=== PATIENT | male | born 1975 | race African-American/Black ===

== ENCOUNTER 2020-07-23 11:10 | Emergency (ER) | payer OTHER, MEDICAID, SELFPAY ==
[2020-07-23 11:29] VITALS: BP 103/87; PULSE 79; RESP 16; TEMP 36; O2SAT 99
--- NOTE | 2020-07-23 11:48 | ED.UPPEXIN ---
HPI - Extremity Injury (Upper) General Chief Complaint: Extremity Injury, Upper Stated Complaint: right arm pain Time Seen by Provider: 07/23/20 11:50 Source: patient Mode of arrival: ambulatory Limitations: no limitations History of Present Illness HPI narrative: Saleem Aiken is a 45 yo male with no PMH who comes to [facility] with carpal tunnel syndrome in the right hand. He is wearing an Jacoby wrap has got mild finger swelling and continues to complain of numbness in his fingers. He went to work this morning at the [employer] that he works at night and they will not let him work with his hand wrapped. He has appoint with PCP on Tuesday to either get a referral for physical therapy or cortisone injection. Is requesting that I give him a work note until he can get to his doctor X-ray done in urgent care last week and there was no fracture, diagnosis of carpal tunnel and sent to see physician Related Data Home Medications Medication Instructions Recorded Confirmed chlorzoxazone 500 mg PO TID 07/23/20 07/23/20 diclofenac sodium 75 mg PO Q12H PRN 07/23/20 07/23/20 ergocalciferol (vitamin D2) 1,250 mcg PO WEEKLY 07/23/20 07/23/20 naproxen 500 mg PO Q12H 07/23/20 07/23/20 Allergies Allergy/AdvReac Type Severity Reaction Status Date / Time No Known Allergies Allergy Verified 07/23/20 11:32 Review of Systems Review of Systems: Narrative: CONSTITUTIONAL: Denies fever, chills, sweats. EYES: Denies visual changes, redness, discharge. ENT: Denies rhinorrhea, congestion, sore throat, otalgia. CARDIOVASCULAR: Denies chest pain, palpitations, edema. RESPIRATORY: Denies dyspnea, wheezing, cough GASTROINTESTINAL: Denies abdominal pain, nausea, vomiting, diarrhea. GENITOURINARY: Denies dysuria, hematuria, abnormal discharge SKIN: Denies rash or itching. NEUROLOGIC: Denies numbness, or focal weakness. PSYCHIATRIC: Denies anxiety or depression. Right wrist pain and swelling PMFSH Past Medical History Medical History No acute medical problems Family History Family History Other Cerebrovascular accident Hypertension Social History Social History (Updated 07/23/20 @ 12:03 by Noy Ibrahim CNP) Smoking status: Never smoker Alcohol intake: former Comments At time of signature, I agree with nursing past medical, surgical, social and family history. There is no relevant family history pertinent to the presenting complaint. Exam Narrative: Exam Narrative: GENERAL: This is a well-nourished, well-developed patient, in mild distress. HEAD: normocephalic, atraumatic. EYES: Sclera clear/white. Vision is grossly intact. EARS: External ears normal, Hearing grossly intact. NOSE: External nose normal without nasal discharge, nares without redness, no rhinorrhea. THROAT: Mucous membranes moist, NECK: Neck supple, non-tender CARDIOVASCULAR: Regular rate and rhythm without murmurs, gallops, or rubs. RESPIRATORY: Clear to auscultation. Breath sounds equal bilaterally. No wheezes, rales, or rhonchi. GASTROINTESTINAL: Abdomen soft, non-tender, SKIN: warm, intact with no suspicious lesions or rash, good texture and turgor. NEURO: awake, alert, and oriented to person, place and time. There were no obvious focal neurologic abnormalities. Steady gait EXTREMITIES: Normal range of motion on L. On R wrist, pain with finger opposition, able to flex/extend. supinate/pronate with pain. BACK: Nontender without deformity Course Course Emergency Course: Patient comes to [facility] to request a work note as required by his employer until he can go to his primary care physician on Tuesday he has pain in his wrists and uses an Jacoby wrap and they will not allow him to work with an Jacoby wrap on his hand Given work note for 2 days after discussion with patient Vital Signs Vital signs: Vital Signs Temperature 96.8 F L 07/23/20
== END 2020-07-23 12:11 | disposition home or self-care (01) ==
PROVIDERS: Emergency Provider Nurse Practitioner
DX: S63.501A Unspecified sprain of right wrist, initial encounter (principal); S66.911A Strain of unspecified muscle, fascia and tendon at wrist and hand level, right hand, initial encounter; X58.XXXA Exposure to other specified factors, initial encounter
CPT/HCPCS: 99203; G0463

== ENCOUNTER 2021-03-29 07:57 | Emergency (ER) | payer OTHER, MEDICAID, SELFPAY ==
[2021-03-29 08:03] VITALS: BP 164/84; PULSE 76; RESP 18; TEMP 37; O2SAT 100
--- NOTE | 2021-03-29 08:11 | ED.DENTAL ---
HPI - Dental/Oral General Chief complaint: Dental/Oral Stated complaint: toothache Time Seen by Provider: 03/29/21 07:59 Source: patient and RN notes reviewed Mode of arrival: ambulatory Limitations: no limitations History of Present Illness HPI Narrative: This is a 46 year old male who presents for evaluation of right upper tooth pain. He reports having intermittent pain for 3 weeks and his pain became worse last night. He states he was unable to sleep due to constant throbbing pain. He has pain to right upper molar and he reports it is causing pain right face. He has not noticed any swelling, drainage, nausea, vomiting or fever. He denies taking anything for pain, and he has not even tried over the counter. He reports he was seen by dentist 1 week ago. He states his dentist told him he needed to see his PCP to get antibiotics but he has been unable to make an appointment with his PCP due to covid. Related Data Home Medications Medication Instructions Recorded Confirmed chlorzoxazone 500 mg PO TID 07/23/20 07/23/20 diclofenac sodium 75 mg PO Q12H PRN 07/23/20 07/23/20 ergocalciferol (vitamin D2) 1,250 mcg PO WEEKLY 07/23/20 07/23/20 naproxen 500 mg PO Q12H 07/23/20 07/23/20 Allergies Allergy/AdvReac Type Severity Reaction Status Date / Time No Known Allergies Allergy Verified 03/29/21 08:05 Review of Systems Review of Systems: All systems reviewed & are unremarkable except as noted in HPI and below PMFSH Past Medical History Medical History (Updated 03/29/21 @ 08:16 by Jennie Gaitan MD) No acute medical problems Surgical History Surgical History (Updated 03/29/21 @ 08:11 by Jennie Gaitan MD) No significant past surgical history Family History Family History Other Cerebrovascular accident Hypertension Social History Social History Smoking status: Never smoker Alcohol intake: former Exam Const: General: no acute distress and alert Orientation/consciousness: patient oriented x3 HENMT: Ears: external ears normal and TM's normal bilaterally General nose exam: Normal external nose present Face and sinus: sinuses nontender and face symmetric Mouth: Yes lip normal, Yes tongue normal, Yes moist mucous membranes and No trismus Teeth and gingiva: abnormal tooth and associated gingiva and caries Throat: posterior oropharynx normal and tonsils normal Eyes: Pupils: Equal, round and reactive pupils present EOM: EOMs intact bilaterally Resp: Effort & Inspection: normal respiratory effort Neuro: General: patient oriented x3 and moves all extremities Gait exam (Neuro): Normal gait present Psych: Mental Status: mental status grossly normal Affect: normal affect Course Reevaluation(s) Reevaluation #1: Patient understands discharge plan to send out on antibiotics. Date: 03/29/21 Time: 08:15 Vital Signs Vital signs: Vital Signs Temperature 98.6 F 03/29/21 08:03 Pulse Rate 76 03/29/21 08:03 Respiratory Rate 18 03/29/21 08:03 Blood Pressure 164/84 H 03/29/21 08:03 Pulse Oximetry 100 03/29/21 08:03 Temperature 98.6 F 03/29/21 08:03 Pulse Rate 76 03/29/21 08:03 Respiratory Rate 18 03/29/21 08:03 Blood Pressure 164/84 H 03/29/21 08:03 Pulse Oximetry 100 03/29/21 08:03 Discharge Plan Discharge Clinical Impression: Dental caries, Toothache Patient Disposition: Home, Self-Care Condition: Stable Instructions: Antibiotic Form, Dental Abscess (ED), Toothache (ED) Additional Instructions: Take antibiotics as prescribed. Follow up with your primary care physician as needed. Please call your dentist to get you teeth taken care of. Prescriptions: New naproxen 500 mg tablet 500 mg PO BID PRN (Reason: pain) Qty: 20 RF: 0 amoxicillin 875 mg tablet 875 mg PO Q12H Qty: 20 RF: 0 No Action chlorzoxaz
--- NOTE | 2021-03-29 08:23 | PC.NURSE ---
PT is refusing toradol injection and states he will go elsewhere for pain relief.
== END 2021-03-29 08:29 | disposition home or self-care (01) ==
PROVIDERS: Emergency Provider General Practice
DX: K02.9 Dental caries, unspecified (principal)
CPT/HCPCS: 99283

== ENCOUNTER 2022-01-15 02:15 | Emergency (ER) | payer OTHER, SELFPAY ==
[2022-01-15 02:18] VITALS: BP 140/70; PULSE 68; RESP 18; O2SAT 100
--- NOTE | 2022-01-15 05:28 | ED.GENADULT ---
HPI - General Adult General Chief complaint: Dental/Oral Stated complaint: toothache Time Seen by Provider: 01/15/22 04:42 History of Present Illness HPI narrative: this is a 46-year-old male presenting to ED with tooth pain. Patient broke his upper right molar approximately 4 days ago. Since then he has been having pain and cold sensitivity. patient went to see a dentist but was turned away. He is going to see a walk-in dentist later today. He is here for pain control today. He denies fever, chills, nausea vomiting diarrhea. He has no facial swelling or sensation of throat swelling. Related Data Home Medications Medication Instructions Recorded Confirmed chlorzoxazone 500 mg tablet 500 mg PO TID 07/23/20 07/23/20 diclofenac sodium 75 mg 75 mg PO Q12H PRN Pain 07/23/20 07/23/20 tablet,delayed release ergocalciferol (vitamin D2) 1,250 1,250 mcg PO WEEKLY 07/23/20 07/23/20 mcg (50,000 unit) capsule naproxen 500 mg tablet 500 mg PO Q12H 07/23/20 07/23/20 Allergies Allergy/AdvReac Type Severity Reaction Status Date / Time No Known Allergies Allergy Verified 03/29/21 08:05 Review of Systems Review of Systems: CONSTITUTIONAL: Denies night sweats. EYES: No eye pain ENT: Denies rhinorrhea CARDIOVASCULAR: Denies palpitations RESPIRATORY: Denies hemoptysis GASTROINTESTINAL: Denies hematemesis GENITOURINARY: Denies hematuria. SKIN: Denies rash MUSCULOSKELETAL: Denies myalgia. NEUROLOGIC: Denies weakness. PSYCHIATRIC: Denies delusions PMFSH Past Medical History Medical History Healthy adult No acute medical problems Surgical History Surgical History No significant past surgical history Family History Family History Other Cerebrovascular accident Hypertension Social History Social History Smoking status: Never smoker Alcohol intake: former Exam Narrative: APPEARANCE: No apparent distress. Head: Patient has multiple gold plated teeth, he has a broken molar that extends below the gum line in the upper right. EYES: EOMI, NOSE: Atraumatic NECK: Trachea midline RESPIRATORY: No increased rate of breathing CARDIOVASCULAR: RRR, ABDOMINAL: Non-distended MUSCULOSKELETAl: No obvious deformities NEURO: Alert. Moving 4/4 extremities SKIN:: Warm, dry. Normal color PSYCHIATRIC: Normal affect Course Vital Signs Vital signs: Vital Signs Pulse Rate 68 01/15/22 02:18 Respiratory Rate 18 01/15/22 02:18 Blood Pressure 140/70 01/15/22 02:18 Pulse Oximetry 100 01/15/22 02:18 Oxygen Delivery Room Air 01/15/22 02:18 Pulse Rate 68 01/15/22 02:18 Respiratory Rate 18 01/15/22 02:18 Blood Pressure 140/70 01/15/22 02:18 Pulse Oximetry 100 01/15/22 02:18 Oxygen Delivery Room Air 01/15/22 02:18 Medical Decision Making MDM Narrative Medical decision making narrative: a 46-year-old presenting with a broken tooth. He is here for pain controlled in to see a dentist later today. Given [place] for pain. discharged w/ rx for Augmentin, Motrin and Tylenol. There is no dental cement available to perform repair. I have stressed the patient is boarded that he follows up today with the dentist to get his tooth repaired. Vital Signs Vital Signs: Vital Signs Pulse Rate 68 01/15/22 02:18 Respiratory Rate 18 01/15/22 02:18 Blood Pressure 140/70 01/15/22 02:18 Pulse Oximetry 100 01/15/22 02:18 Oxygen Delivery Room Air 01/15/22 02:18 Pulse Rate 68 01/15/22 02:18 Respiratory Rate 18 01/15/22 02:18 Blood Pressure 140/70 01/15/22 02:18 Pulse Oximetry 100 01/15/22 02:18 Oxygen Delivery Room Air 01/15/22 02:18 Discharge Plan Discharge Clinical Impression: Fracture of tooth Patient Disposition: Home, Self-C
[2022-01-15] MEDS: AMOXICILLIN/CLAVULANATE K 875-125 MG TAB 1 TABLET PO (05:50)
[2022-01-15] MEDS: HYDROcodone/acetaminophen (*CRX) 5-325 MG TABLET 2 TAB PO (05:50)
== END 2022-01-15 06:00 | disposition home or self-care (01) ==
PROVIDERS: Emergency Provider Emergency Medicine
DX: K03.81 Cracked tooth (principal)
CPT/HCPCS: 99283; A9270

== ENCOUNTER 2022-01-27 00:34 | Emergency (ER) | payer OTHER, SELFPAY ==
[2022-01-27 00:37] VITALS: BP 128/86; PULSE 64; RESP 16; TEMP 36.7; O2SAT 99
--- NOTE | 2022-01-27 01:04 | ED.DENTAL ---
HPI - Dental/Oral General Chief complaint: Dental/Oral Stated complaint: dental Time Seen by Provider: 01/27/22 00:36 History of Present Illness HPI Narrative: 46-year-old male presents to the emergency room for dental pain requesting narcotics for his pain. Patient was seen in the emergency room 12 days ago after having broken his right lower molar. Patient reportedly completed his course of antibiotics 2 days ago and followed up with a dentist. He was told by the dentist that he would need to see an oral surgeon to have his molar removed. Patient states that he has been smoking excessive amounts of marijuana to alleviate his symptoms. Related Data Home Medications Medication Instructions Recorded Confirmed chlorzoxazone 500 mg tablet 500 mg PO TID 07/23/20 07/23/20 diclofenac sodium 75 mg 75 mg PO Q12H PRN Pain 07/23/20 07/23/20 tablet,delayed release ergocalciferol (vitamin D2) 1,250 1,250 mcg PO WEEKLY 07/23/20 07/23/20 mcg (50,000 unit) capsule naproxen 500 mg tablet 500 mg PO Q12H 07/23/20 07/23/20 Allergies Allergy/AdvReac Type Severity Reaction Status Date / Time No Known Allergies Allergy Verified 01/27/22 00:35 Review of Systems Review of Systems: CONSTITUTIONAL: Denies fever, chills, or sweats. EYES: Denies visual changes, redness, or discharge. ENT: Right lower pain CARDIOVASCULAR: Denies chest pain, palpitations, or edema. RESPIRATORY: Denies cough or dyspnea. GASTROINTESTINAL: Denies abdominal pain, nausea, vomiting, or diarrhea. GENITOURINARY: Denies dysuria or hematuria. SKIN: Denies rash or itching. MUSCULOSKELETAL: Denies back pain, joint pain, or myalgia. NEUROLOGIC: Denies headache, numbness, dizziness, or weakness. PSYCHIATRIC: Denies anxiety or depression. [facility] Past Medical History Medical History Healthy adult No acute medical problems Surgical History Surgical History No significant past surgical history Family History Family History Other Cerebrovascular accident Hypertension Social History Social History Smoking status: Never smoker Alcohol intake: former Exam Narrative: GENERAL: Well-appearing, well-nourished, no physical limitations, and in no acute distress. HEAD: Normocephalic, atraumatic. EYES: Conjunctivae normal, PERRLA and EOMI. ENT: +TTP right lower molar with obvious cavitation no surrounding erythema or abscess no NECK: Supple. No adenopathy or masses. CHEST: Clear to auscultation. No respiratory distress. No wheezes rales or rhonchi. HEART: Regular rate and rhythm. No murmur heard. Normal peripheral pulses. EXTREMITIES: Normal range of motion. No edema. No clubbing or cyanosis SKIN: Warm, dry, no rash. No noted wounds NEURO: No focal deficits. Alert and oriented x3. MAEW. CN's II-XI intact bilaterally, normal gait PSYCH: Cooperative. Normal mood and affect. Course Vital Signs Vital signs: Vital Signs Temperature 36.7 C 01/27/22 00:37 Pulse Rate 64 01/27/22 00:37 Respiratory Rate 16 01/27/22 00:37 Blood Pressure 128/86 01/27/22 00:37 Pulse Oximetry 99 01/27/22 00:37 Oxygen Delivery Room Air 01/27/22 00:37 Temperature 36.7 C 01/27/22 00:37 Pulse Rate 64 01/27/22 00:37 Respiratory Rate 16 01/27/22 00:37 Blood Pressure 128/86 01/27/22 00:37 Pulse Oximetry 99 01/27/22 00:37 Oxygen Delivery Room Air 01/27/22 00:37 Procedures Nerve Block Nerve Block 1: Nerve block date: 01/27/22 Nerve block time: 01:09 Time out performed: Yes Local Anesthetic: lidocaine 1% and with epi Amount of anesthesia used (mL): 3 Side: right Intraoral Nerve Block: inferior alveolar Procedure Successful: Yes Patient Tolerated Procedure: well
--- NOTE | 2022-01-27 01:34 | PC.NURSE ---
patient left without signing discharge paperwork. he was not happy with medication called to pharmacy, continued to mumble and walked out of room while chart writer discussed with provider. found patient in waiting room to discuss discharge and he refused to come back to room and walked out. chart writer did not get the chance to tell him that an abx was sent to pharmacy. provider aware
== END 2022-01-27 01:37 | disposition home or self-care (01) ==
PROVIDERS: Emergency Provider Nurse Practitioner Family
DX: K08.89 Other specified disorders of teeth and supporting structures (principal)
CPT/HCPCS: 64999; 99283